=== PATIENT | male | born 1955 | race African-American/Black ===

== ENCOUNTER 2019-07-19 15:43 | Emergency (ER) | payer MEDICAID, OTHER ==
[~2019-07-19] VITALS: Ht 162.6 cm; Wt 68.0 kg
[~2019-07-19 15:43] MED LIST: AMLO10TA80 PO; ASA5EC PO; ATOR-2 PO; ECON15CR11 TOP; FLUO15CR TOP; METO-396 PO; MIRT15TA6 PO; TAMS0.4C31 PO; TC1U15 TOP
[2019-07-19 18:21] LABS: HEMATOCRIT. 37.1 % (42.0-52.0); HEMOGLOBIN. 12.5 g/dL (14.0-18.0); MEAN CORPUSCULAR VOLUME 77.6 fL (80.0-94.0); PLATELET 287 x1000/uL (130-400); RED BLOOD CELL COUNT 4.78 mill/uL (4.7-6.1); RED CELL DISTRIBUTION WIDTH 14.4 % (11.6-14.6)
[2019-07-19 18:26] LABS: CHLORIDE 99 mEq/L (98-107)
[2019-07-19 18:40] LABS: PLATELET ESTIMATE NORMAL
[2019-07-19] MEDS ORDERED: POTASSIUM CHLORIDE 20MEQ TABLET SR PO ONE (19:00)
[2019-07-19 19:13] LABS: CLARITY URINE CLOUDY (CLEAR); COLOR URINE YELLOW (YELLOW); KETONES URINE NEGATIVE (NEGATIVE); LEUKOCYTE ESTERASE URINE 2+ (NEGATIVE); NITRITE URINE NEGATIVE (NEGATIVE); OCCULT BLOOD URINE NEGATIVE (NEGATIVE); PROTEIN URINE NEGATIVE (NEGATIVE); SPECIFIC GRAVITY URINE 1.023 (1.005-1.030)
[2019-07-19 23:17] VITALS: BP 121/72
== END 2019-07-19 23:20 | disposition home or self-care (01) ==
LOC: ER 15:43
DX: E87.6 Hypokalemia (principal); E11.9 Type 2 diabetes mellitus without complications; I10 Essential (primary) hypertension; Z86.73 Personal history of transient ischemic attack (TIA), and cerebral infarction without residual deficits; Z99.3 Dependence on wheelchair; Z79.82 Long term (current) use of aspirin
CPT/HCPCS: 36415; 71045; 81003; 87077; 87186; 99284

== ENCOUNTER 2019-12-07 22:55 | Inpatient (IN) | payer OTHER ==
[~2019-12-07] VITALS: Ht 170.2 cm; Wt 77.1 kg
[~2019-12-07 22:55] MED LIST changes: -ASA5EC PO; +ASPI325T85 PO
[2019-12-07] MEDS ORDERED: FAMOTIDINE 20MG/2ML VIAL IV STA (23:15)
[2019-12-07] MEDS ORDERED: ONDANSETRON HCL 4MG/2ML INJ IV STA (23:15)
[2019-12-07] MEDS ORDERED: SODIUM CHLORIDE 0.9% 1,000 ML IV ONE (23:15)
[2019-12-08 00:34] LABS: BASOPHILS % 0.4 % (0.0-2.0); EOSINOPHILS % 1.4 % (0.0-5.0); HEMATOCRIT. 36.2 % (42.0-52.0); HEMOGLOBIN. 12.2 g/dL (14.0-18.0); LYMPHOCYTES % 7.1 % (20.0-50.0); MEAN CORPUSCULAR HEMOGLOBIN 26.9 pg (28.0-32.0); MEAN CORPUSCULAR VOLUME 79.9 fL (80.0-94.0); MEAN PLATELET VOLUME 8.4 fl (7.4-10.4); NEUTROPHILS % 85.1 % (40.0-76.0); PLATELET 268 x1000/uL (130-400); RED BLOOD CELL COUNT 4.53 mill/uL (4.7-6.1); RED CELL DISTRIBUTION WIDTH 14.7 % (11.6-14.6)
[2019-12-08 00:40] LABS: INR 1.1; PROTHROMBIN TIME 10.9 sec (9.6-11.0)
[2019-12-08 00:43] LABS: CHLORIDE 108 mEq/L (98-107)
[2019-12-08] MEDS ORDERED: DEXTROSE 50% WATER 50ML SYRINGE IV PRN (09:45)
[2019-12-08] MEDS ORDERED: MORPHINE SULFATE 2 MG/ML CPJ (NOT FOR IM USE) IV PRN (09:45)
[2019-12-08] MEDS ORDERED: ONDANSETRON HCL 4MG/2ML INJ IV PRN (09:45)
[2019-12-08] MEDS ORDERED: IPRATROPIUM/ALBUTEROL 0.5-3(2.5)MG/3ML NEB NEB PRN (09:45)
[2019-12-08] MEDS ORDERED: LORAZEPAM 2MG/ML CPJ IV PRN (09:45)
[2019-12-08] MEDS ORDERED: DIPHENHYDRAMINE 50MG/ML VIAL IV PRN (09:45)
[2019-12-08] MEDS ORDERED: CLONIDINE 0.1MG TABLET PO PRN (09:45)
[2019-12-08] MEDS: DEXT 5%/0.45% NACL 1000ML 1,000 ML IV SCH (10:09)
[2019-12-08] MEDS: PANTOPRAZOLE SODIUM 40 MG/VIAL IV SCH ×2 (10:13→17:39)
[2019-12-08] MEDS: BLOOD SUGAR DIAGNOSTIC STRIP TEST SCH ×4 (10:14→21:00)
[2019-12-08] MEDS: INSULIN LISPRO 100 UNITS/ML SUBCUT SCH ×4 (10:14→21:00)
[2019-12-08 13:16] LABS: HEMATOCRIT 34.4 % (42.0-52.0); HEMOGLOBIN 11.4 g/dL (14.0-18.0); MEAN CORPUSCULAR HEMOGLOBIN 26.4 pg (28.0-32.0); MEAN CORPUSCULAR VOLUME 79.6 fL (80.0-94.0); PLATELET 247 x1000/uL (130-400); RED BLOOD CELL COUNT 4.32 mill/uL (4.7-6.1); RED CELL DISTRIBUTION WIDTH 14.5 % (11.6-14.6)
[2019-12-08 13:42] LABS: CHLORIDE 108 mEq/L (98-107)
[2019-12-08] MEDS: DOCUSATE SODIUM 250MG CAPSULE PO SCH ×2 (13:42→16:57)
[2019-12-08 13:48] LABS: TOTAL IRON BINDING CAPACITY 238 ug/dL (250-450)
[2019-12-08 14:20] VITALS: BP 167/95
[2019-12-08 14:46] LABS: TOTAL IRON BINDING CAPACITY 249 ug/dL (250-450)
[2019-12-08 16:00] VITALS: BP 168/75
[2019-12-08] MEDS ORDERED: SERT100T PO (19:49)
[2019-12-08] MEDS ORDERED: TERA2CAP4 PO (19:50)
[2019-12-08] MEDS ORDERED: METF-815 PO (19:51)
[2019-12-08] MEDS ORDERED: NABU-90 PO (19:52)
[2019-12-08] MEDS ORDERED: CLOP75TA33 PO (19:54)
[2019-12-09 00:20] VITALS: BP 182/62
[2019-12-09] MEDS: DEXT 5%/0.45% NACL 1000ML 1,000 ML IV SCH (00:38)
[2019-12-09 04:00] VITALS: BP 135/80
[2019-12-09 06:31] LABS: BASOPHILS % 0.6 % (0.0-2.0); EOSINOPHILS % 2.4 % (0.0-5.0); HEMATOCRIT. 32.2 % (42.0-52.0); HEMOGLOBIN. 10.9 g/dL (14.0-18.0); LYMPHOCYTES % 8.4 % (20.0-50.0); MEAN CORPUSCULAR HEMOGLOBIN 26.8 pg (28.0-32.0); MEAN CORPUSCULAR VOLUME 79.2 fL (80.0-94.0); MEAN PLATELET VOLUME 8.5 fl (7.4-10.4); MONOCYTES % 8.3 % (2.0-8.0); NEUTROPHILS % 80.3 % (40.0-76.0); PLATELET 234 x1000/uL (130-400); RED BLOOD CELL COUNT 4.07 mill/uL (4.7-6.1); RED CELL DISTRIBUTION WIDTH 14.5 % (11.6-14.6)
[2019-12-09 06:36] LABS: CHLORIDE 105 mEq/L (98-107)
[2019-12-09 06:44] LABS: LDL CHOLESTEROL 66 mg/dL (5-100)
[2019-12-09 06:46] LABS: HDL CHOLESTEROL 55 mg/dL (40-59)
[2019-12-09 06:53] LABS: T4 FREE 1.08 ng/dL (0.76-1.46)
[2019-12-09 08:00] VITALS: BP 145/79
[2019-12-09] MEDS: INSULIN LISPRO 100 UNITS/ML SUBCUT SCH ×3 (08:10→18:10)
[2019-12-09] MEDS: BLOOD SUGAR DIAGNOSTIC STRIP TEST SCH ×3 (08:20→18:24)
[2019-12-09] MEDS: PANTOPRAZOLE SODIUM 40 MG/VIAL IV SCH ×2 (09:04→17:50)
[2019-12-09] MEDS: DOCUSATE SODIUM 250MG CAPSULE PO SCH ×2 (09:04→17:50)
[2019-12-09 12:00] VITALS: BP 119/83
[2019-12-09] MEDS ORDERED: PANT40SU MT (12:30)
[2019-12-09] MEDS ORDERED: LEVO500T2 MT (12:30)
[2019-12-09] MEDS ORDERED: POTASSIUM CHLORIDE 20MEQ TABLET SR PO NR (13:15)
[2019-12-09 14:00] LABS: HEMATOCRIT 32.5 % (42.0-52.0); HEMOGLOBIN 11.1 g/dL (14.0-18.0)
[2019-12-09 14:45] VITALS: BP 119/83
[2019-12-09 16:00] VITALS: BP 152/89
[2019-12-10] MEDS ORDERED: LEVOFLOXACIN 500MG TABLET PO SCH (11:00)
[2019-12-14] MEDS ORDERED: CIPRO (16:01)
== END 2019-12-09 20:25 | disposition home or self-care (01) | DRG 241 ==
LOC: ER 22:55 → EDBEDREQ 12-08 00:40 → 7WST 12-08 01:35 → EDBEDREQ 12-08 01:59 → EDBEDREQTM 12-08 01:59 → SUPCPDRO 12-08 09:42 → ENRESERV 12-08 13:18
PROVIDERS: ADMIT Internal Medicine; ATTEND Internal Medicine
DX: K29.71 Gastritis, unspecified, with bleeding (principal); N17.9 Acute kidney failure, unspecified; I31.3 Pericardial effusion (noninflammatory); D50.9 Iron deficiency anemia, unspecified; E11.9 Type 2 diabetes mellitus without complications; E86.0 Dehydration; F03.90 Unspecified dementia, unspecified severity, without behavioral disturbance, psychotic disturbance, mood disturbance, and anxiety; I10 Essential (primary) hypertension; N28.9 Disorder of kidney and ureter, unspecified; N39.0 Urinary tract infection, site not specified; N41.9 Inflammatory disease of prostate, unspecified; N40.0 Benign prostatic hyperplasia without lower urinary tract symptoms; Z74.01 Bed confinement status; Z79.82 Long term (current) use of aspirin; Z86.73 Personal history of transient ischemic attack (TIA), and cerebral infarction without residual deficits; Z79.899 Other long term (current) drug therapy
CPT/HCPCS: 36415; 74176; 80053; 80061; 82728; 82962; 83540; 83550; 84153; 84439; 84443; 85014; 85018; 85025; 85027; 85044; 86850; 86900; 93306; 93970; 96374; 99285; C9113; J2405; J3490; J7030; A4315; G0103

== ENCOUNTER 2020-10-21 17:51 | Emergency (ER) | payer OTHER ==
[~2020-10-21] VITALS: Ht 182.9 cm; Wt 68.7 kg
[~2020-10-21 17:51] MED LIST changes: -AMLO10TA80 PO; -ASPI325T85 PO; -ECON15CR11 TOP; -FLUO15CR TOP; +METF-815 PO; -METO-396 PO; -MIRT15TA6 PO; +NABU-90 PO; +PANT40SU MT; +SERT100T PO; -TAMS0.4C31 PO; -TC1U15 TOP; +TERA2CAP4 PO
[2020-10-21 18:28] LABS: BASOPHILS % 1.1 % (0.0-2.0); EOSINOPHILS % 3.8 % (0.0-5.0); HEMATOCRIT. 34.2 % (42.0-52.0); HEMOGLOBIN. 11.2 g/dL (14.0-18.0); LYMPHOCYTES % 27.7 % (20.0-50.0); MEAN CORPUSCULAR VOLUME 76.1 fL (80.0-94.0); MEAN PLATELET VOLUME 8.1 fl (7.4-10.4); MONOCYTES % 8.7 % (2.0-8.0); NEUTROPHILS % 58.7 % (40.0-76.0); PLATELET 292 x1000/uL (130-400); RED BLOOD CELL COUNT 4.49 mill/uL (4.7-6.1); RED CELL DISTRIBUTION WIDTH 15.2 % (11.6-14.6)
[2020-10-21 18:33] LABS: CHLORIDE 110 mEq/L (98-107)
[2020-10-21 18:37] LABS: ETHANOL BLOOD < 10 mg/dL
[2020-10-21 18:38] LABS: D-DIMER 0.4 mg/L FEU (<0.50); INR 1.1; PARTIAL THROMBOPLASTIN TIME 22.7 sec (23.4-31.0); PROTHROMBIN TIME 11.6 sec (9.6-11.0)
[2020-10-21 18:41] LABS: CREATINE KINASE 132 IU/L (39-308)
[2020-10-21 18:44] LABS: CREATINE KINASE MB FRACTION < 1.0 ng/mL (0.5-3.6)
[2020-10-21] MEDS ORDERED: POTASSIUM CHLORIDE 20MEQ TABLET SR PO ONE (18:45)
[2020-10-21] MEDS ORDERED: SODIUM CHLORIDE 0.9% 500 ML IV ONE (18:45)
[2020-10-21] MEDS ORDERED: KCL 20MEQ/100ML PREMIX 100 ML IV ONE (19:00)
[2020-10-21] MEDS ORDERED: ASPIRIN 300MG SUPP PR ONE (19:00)
[2020-10-21 19:27] LABS: CLARITY URINE CLOUDY (CLEAR); COLOR URINE YELLOW (YELLOW); KETONES URINE NEGATIVE (NEGATIVE); LEUKOCYTE ESTERASE URINE TRACE (NEGATIVE); NITRITE URINE NEGATIVE (NEGATIVE); OCCULT BLOOD URINE 1+ (NEGATIVE); PH URINE 5.5 (4.5-8.0); PROTEIN URINE NEGATIVE (NEGATIVE); SPECIFIC GRAVITY URINE 1.013 (1.005-1.030); UROBILINOGEN URINE 0.2 E.U./dL (0.2-1.0)
[2020-10-21 20:08] LABS: *AMPHETAMINES SCREEN URINE NEGATIVE (NEGATIVE); *BARBITURATES SCREEN URINE NEGATIVE (NEGATIVE); *BENZODIAZEPINES SCREEN URINE NEGATIVE (NEGATIVE); *COCAINE SCREEN URINE NEGATIVE (NEGATIVE); METHADONE URINE SCREEN NEGATIVE (NEGATIVE); OPIATES URINE SCREEN NEGATIVE (NEGATIVE)
[2020-10-21 20:09] LABS: CANNABINOID URINE SCREEN NEGATIVE (NEGATIVE); PHENCYCLIDINE URINE SCREEN NEGATIVE (NEGATIVE)
[2020-10-21] MEDS ORDERED: DOCUSATE SODIUM 100MG CAPSULE PO PRN (21:15)
[2020-10-21] MEDS ORDERED: ONDANSETRON HCL 4MG/2ML INJ IV PRN (21:15)
[2020-10-21] MEDS ORDERED: CEFTRIAXONE 1 G PREMIX 50 ML IV ONE (21:15)
[2020-10-21] MEDS ORDERED: ACETAMINOPHEN 325MG TABLET PO PRN (21:15)
[2020-10-21] MEDS ORDERED: ACETAMINOPHEN 650MG SUPP PR ONE (21:30)
[2020-10-21] MEDS ORDERED: SODIUM CHLORIDE 0.9% INJ 3ML FLUSH IVF SCH (22:00)
[2020-10-22 03:46] VITALS: BP 138/67
[2020-10-22] MEDS ORDERED: PANTOPRAZOLE 40MG DR TABLET PO SCH (07:50)
[2020-10-22] MEDS ORDERED: ATORVASTATIN CALCIUM 40MG TABLET PO SCH (21:00)
[2020-10-22] MEDS ORDERED: TERAZOSIN HCL 1MG CAPSULE PO SCH (21:00)
== END 2020-10-22 03:52 | disposition short-term general hospital (02) ==
LOC: ER 17:51 → CANBEDREQ 10-22 05:22
DX: R55 Syncope and collapse (principal); R79.89 Other specified abnormal findings of blood chemistry; G92 Toxic encephalopathy; E87.8 Other disorders of electrolyte and fluid balance, not elsewhere classified; Z86.73 Personal history of transient ischemic attack (TIA), and cerebral infarction without residual deficits; G93.41 Metabolic encephalopathy; I10 Essential (primary) hypertension; E11.9 Type 2 diabetes mellitus without complications; Z79.899 Other long term (current) drug therapy
CPT/HCPCS: 36415; 70450; 71045; 80053; 80305; 80320; 81003; 82550; 82553; 82962; 83690; 83880; 84484; 85025; 85379; 85610; 85730; 87077; 87086; 87186; 93005; 96361; 96365; 99285; J0696; J3480; J7040; G0480